=== PATIENT | male | born 1965 | race Caucasian/White ===

== ENCOUNTER → 2021-04-29 | Outpatient (CLI) | payer OTHER ==
[~2021-04-29] MED LIST: GADOTERATE 7.5 MMOL/15ML VIAL. IVP ONE
--- NOTE | 2021-05-02 09:28 | KCIC ---
EXAM: MRI ABDOMEN AND PELVIS WITH AND WITHOUT CONTRAST. HISTORY: Liver lesions prior studies. TECHNIQUE: MRI of the abdomen and pelvis was performed before and after the intravenous administratio n of 20 mL Clariscan. COMPARISON: None. FINDINGS: Liver: Multiple T2 hyperintense lesions scattered throughout both hepatic lobes demonstrate progressi ve peripheral nodular enhancement and are consistent with benign hemangiomas. The largest in segment 8 measures 2.8 x 2.1 cm. A few subcentimeter nonenhancing lesions are consistent with cysts. There ar e no suspicious hepatic lesions. Biliary tree: A small focus of adenomyosis is suspected along the posterior gallbladder wall. No ston es or surrounding inflammation is identified. The common duct is not dilated. Tiny cystic lesions in the pancreatic tail measure 3 mm or less. There are no suspicious pancreatic parenchymal lesions. The pancreatic duct is not dilated. Other findings: A benign cyst in the left renal hilum measures 1.7 cm and appears benign. Pelvis: The bladder is partially decompressed. There is moderate diffuse wall thickening. The prostat e is mildly enlarged for patient age. There are no pathologically enlarged lymph nodes. There is no displaced acetabular labral tear. The joint spaces and alignment of both hips are maintai abram. The pubic symphysis and sacroiliac joints are unremarkable. There is minimal greater trochanteri c bursitis on the left greater than right. IMPRESSION: 1. Multiple hepatic lesions are consistent with benign hemangiomas and cysts. No suspicious hepatic l esions. 2. Nonfocal bladder wall thickening suggests chronic outlet obstruction or inflammation. Correlate urinalysis. Electronically signed by: Kayleigh Steel MD (05/02/2021 9:26 AM) [id number]
== END ==
LOC: KCIC MRI 08:10
PROVIDERS: ATTEND Family Medicine
DX: K76.9 Liver disease, unspecified (principal); N40.0 Benign prostatic hyperplasia without lower urinary tract symptoms; N28.1 Cyst of kidney, acquired; N32.89 Other specified disorders of bladder; R16.0 Hepatomegaly, not elsewhere classified
CPT/HCPCS: 72197; 74183; A9575